=== PATIENT | female | born 1975 | race American Indian/Alaskan Native ===

== ENCOUNTER 2019-01-04 13:11 | Emergency (ER) | payer OTHER, MEDICARE ==
--- NOTE | 2019-01-04 13:37 | Emergency Department Report ---
Blank Doc - Documentation Documentation: 43 yo female presents with sickle cell pain pmh of BP took bp meds this morning cc of generalized pain labs protocols ordered
[2019-01-04] MEDS ORDERED: DILAUDID IV ONE ×2 (14:05→15:07)
[2019-01-04] MEDS ORDERED: ZOFRAN IV ONE (14:05)
[2019-01-04] MEDS ORDERED: BENADRYL IV ONE (14:07)
--- NOTE | 2019-01-04 14:10 | Emergency Department Report ---
HPI - General Chief Complaint: Sickle Cell Crisis Time Seen by Provider: 01/04/19 13:35 - HPI HPI: Room 3 The patient is a 43-year-old female presenting with a chief complaint of sickle cell crisis. The patient states the past 3 days she's had diffuse body pain consistent with her sickle cell. Patient denies any history of fever. She missed an episode of nausea vomiting this morning. 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 Pulmonary Embolism - Surgical History Past Surgical History?: Yes Hx Cholecystectomy: Yes Additional Surgical History: splenectomy, 3 c-sections, tubal ligation. Port to R chest - Family History Family history: no significant - Social History Smoking Status: Never Smoker Substance Use Type: None (denies illicit drug use) - Medications Home Medications: Home Medications Medication Instructions Recorded Confirmed Last Taken Type Lisinopril [Zestril TAB] 40 mg PO QDAY 08/13/13 07/22/16 09/19/14 21:30 History hydroCHLOROthiazide [HCTZ] 25 mg PO QDAY 08/13/13 07/22/16 09/19/14 21:30 History Folic Acid [Folvite] 1 mg PO QDAY #60 tablet 09/09/14 07/22/16 09/20/14 08:00 Rx Hydroxyurea [Droxia] 500 mg PO BID #60 capsule 09/09/14 07/22/16 09/20/14 08:00 Rx Rivaroxaban [Xarelto] 20 mg PO QDAY 02/04/16 07/22/16 Unknown History Ibuprofen [Motrin 800 MG tab] 800 mg PO Q8HR PRN #20 tablet 07/22/16 Unknown Rx glipiZIDE [glipiZIDE XL] 1 tab PO DAILY 07/22/16 07/22/16 Unknown History metFORMIN [Glucophage] 500 mg PO BID 07/22/16 07/22/16 Unknown History oxyCODONE /ACETAMINOPHEN [Percocet 1 - 2 tab PO Q6HR PRN #14 tablet 07/22/16 Unknown Rx 5/325] HYDROcodone/APAP 5-325 [[place] 1 - 2 each PO Q6HR PRN #14 tablet 01/04/19 Unknown Rx 5/325] Ibuprofen [Motrin 800 MG tab] 800 mg PO Q8HR PRN #20 tablet 01/04/19 Unknown Rx ED Review of Systems ROS: Stated complaint: SICKLE CELL Other details as noted in HPI Constitutional: denies: fever Eyes: denies: eye pain ENT: denies: throat pain Respiratory: no symptoms reported Cardiovascular: denies: chest pain Endocrine: no symptoms reported Gastrointestinal: denies: abdominal pain Genitourinary: denies: dysuria Musculoskeletal: myalgia Neurological: denies: headache Hematological/Lymphatic: other (pain crisis) Physical Exam - Physical Exam Vital Signs: Vital Signs 01/04/19 13:22 Temperature 98.2 F Pulse Rate 92 H Respiratory 18 Rate Blood Pressure 204/92 O2 Sat by Pulse 100 Oximetry Physical Exam: GENERAL: The patient is well-developed well-nourished female lying on stretcher not appearing to be in acute distress. [] HEENT: Normocephalic. Atraumatic. Extraocular motions are intact. Patient has moist mucous membranes. NECK: Supple. Trachea midline CHEST/LUNGS: Clear to auscultation. There is no respiratory distress noted. HEART/CARDIOVASCULAR: Regular. There is no tachycardia. There is no gallop rub or murmur. ABDOMEN: Abdomen is soft, nontender. Patient has normal bowel sounds. There is no abdominal distention. SKIN: There is no rash. There is no edema. There is no diaphoresis. NEURO: The patient is awake, alert, and oriented. The patient is cooperative. The patient has normal speech MUSCULOSKELETAL: There is no evidence of acute injury. ED Course Vital Signs 01/04/19 13:22 Temperature 98.2 F Pulse Rate 92 H Respiratory 18 Rate Blood Pressure 204/92 O2 Sat by Pulse 100 Oximetry ED Medical Decision Making - Lab Data Result diagrams: 01/04/19 14:19 01/04/19 14:19 Laboratory Tests 01/04/19 01/04/19 01/04/19 14:19 14:19 14:19 WBC 14.1 H RBC 5.55 H Hgb 9.4 L Hct 32.7 MCV 59 L MCH 17 L MCHC 29 L RDW 30.6 H Plt Count 528 H Percent Retic PT 13.6 INR 1.00 Sodium 142 Potassium 3.4 L Chloride 102.9 Carbon Dioxide 26 Anion Gap 17 BUN 5 L Creatinine 0.5 L Estimated GFR > 60 BUN/Creatinine Ratio 10 Glucose 250 H Calcium 8.9 01/04/19 14:19 WBC RBC Hgb Hct MCV MCH MCHC RDW Plt Count Percent Retic 2.55 PT INR Sodium Potassium Chloride Carbon Dioxide Anion Gap BUN Creatinine Estimated GFR BUN/Creatinine Ratio Glucose Calcium - Differential Diagnosis sickle cell pain crisis Critical care attestation.: If time is entered above; I have spent that time in minutes in the direct care of this critically ill patient, excluding procedure time. ED Disposition Clinical Impression: Sickle cell pain crisis Disposition: TO HOME OR SELFCARE Is pt being admited?: No Does the pt Need Aspirin: No Condition: Stable Instructions: Sickle Cell Crisis (ED) Additional Instructions: Return to the emergency department immediately should you develop worsening symptoms, fever, inability to tolerate food or liquid or any other concerns. Prescriptions: HYDROcodone/APAP 5-325 [[place] 5/325] 1 - 2 each PO Q6HR PRN #14 tablet PRN Reason: Pain Ibuprofen [Motrin 800 MG tab] 800 mg PO Q8HR PRN #20 tablet PRN Reason: Pain, Moderate (4-6) Referrals: JAMES REES MD [Primary Care Provider] - 3-[address] Grullon, sole cementer [Other] - 3-5 Days Time of Disposition: 15:23
[2019-01-04 14:41] LABS: Red Blood Count 5.55 M/mm3 (3.65-5.03)
[2019-01-04 14:42] LABS: Hematocrit 32.7 % (30.3-42.9); Hemoglobin 9.4 gm/dl (10.1-14.3); Mean Corpuscular HGB Conc 29 % (30-34); Mean Corpuscular Volume 59 fl (79-97); Platelet Count 528 K/mm3 (140-440); Red Cell Distribution Width 30.6 % (13.2-15.2)
[2019-01-04 14:44] LABS: BUN/Creatinine Ratio 10; Blood Urea Nitrogen 5 mg/dL (7-17); Calcium 8.9 mg/dL (8.4-10.2); Hemolysis Index 8
[2019-01-04] MEDS ORDERED: D5NS 0.2% 1,000 ML IV SCH (15:00)
[2019-01-04] MEDS ORDERED: FLUSH HEPARIN IV ONE ×2 (15:37→15:42)
[2019-01-04 15:43] LABS: Anisocytosis 2+; Basophils % (Manual) 0 % (0.0-1.8); Eosinophils % (Manual) 0 % (0.0-4.3); Poikilocytosis 3+; Total Cells Counted 100
[2019-01-04 15:44] LABS: Hypochromasia 2+; Ovalocytes Few; Schistocytes Rare; Target Cells 2+
[2019-01-04 15:45] LABS: Large Platelets Few; Platelet Estimate Consistent w Auto; Tear Drop Cells Few
[2019-01-04 15:46] VITALS: BP 145/70
== END 2019-01-04 15:46 | disposition home or self-care (01) ==
LOC: ED 13:11
DX: D57.00 Hb-SS disease with crisis, unspecified (principal); I10 Essential (primary) hypertension; E11.9 Type 2 diabetes mellitus without complications; G43.909 Migraine, unspecified, not intractable, without status migrainosus; Z90.49 Acquired absence of other specified parts of digestive tract
CPT/HCPCS: 36415; 80048; 85007; 85025; 85045; 85610; 96361; 96374; 96375; 96376; 99283; J1170; J1200; J1642; J2405

== ENCOUNTER 2019-03-04 10:11 | Emergency (ER) | payer OTHER, MEDICARE ==
[2019-03-04] MEDS ORDERED: NACL 0.9% 1000 ML 1,000 ML IV ONE (12:17)
[2019-03-04] MEDS ORDERED: DILAUDID IM ONE (12:17)
[2019-03-04] MEDS ORDERED: ZOFRAN IV ONE (12:17)
[2019-03-04 12:20] VITALS: BP 175/95
[2019-03-04 13:13] LABS: Hematocrit 31.7 % (30.3-42.9); Hemoglobin 9.6 gm/dl (10.1-14.3); Mean Corpuscular HGB Conc 30 % (30-34); Mean Corpuscular Volume 61 fl (79-97); Platelet Count 538 K/mm3 (140-440); Red Blood Count 5.22 M/mm3 (3.65-5.03); Red Cell Distribution Width 31.7 % (13.2-15.2)
[2019-03-04 13:17] LABS: INR 0.95 (0.87-1.13)
[2019-03-04 13:18] LABS: Partial Thromboplastin Time 26.9 Sec. (24.2-36.6)
[2019-03-04 13:30] LABS: Alanine Aminotransferase 12 units/L (7-56); Albumin 4.2 g/dL (3.9-5); BUN/Creatinine Ratio 23; Blood Urea Nitrogen 9 mg/dL (7-17); Calcium 8.9 mg/dL (8.4-10.2); Hemolysis Index 4
[2019-03-04] MEDS ORDERED: DILAUDID IV ONE (13:43)
--- NOTE | 2019-03-04 13:47 | Emergency Department Report ---
ED General Adult HPI - General Chief complaint: Sickle Cell Crisis Stated complaint: SICKLE CELL PAIN Time Seen by Provider: 03/04/19 12:13 Source: patient Mode of arrival: Ambulatory Limitations: No Limitations - History of Present Illness Initial comments: Patient presents to emergency department she complains sickle cell crisis. Patient states she is having right lower sclerae pain which is common with her sickle cell crisis. She states the pain starts in the right hip and goes to her right knee. Patient normally takes MS Contin for pain at home but has been out for the last couple days. -: Sudden Location: lower extremity Severity scale (0 -10): 6 Quality: stabbing, sharp Consistency: constant Improves with: none Worsens with: none Associated Symptoms: denies other symptoms Treatments Prior to Arrival: none - Related Data Home Medications Medication Instructions Recorded Confirmed Last Taken Lisinopril [Zestril TAB] 40 mg PO QDAY 08/13/13 07/22/16 09/19/14 21:30 hydroCHLOROthiazide [HCTZ] 25 mg PO QDAY 08/13/13 07/22/16 09/19/14 21:30 Rivaroxaban [Xarelto] 20 mg PO QDAY 02/04/16 07/22/16 Unknown glipiZIDE [glipiZIDE XL] 1 tab PO DAILY 07/22/16 07/22/16 Unknown metFORMIN [Glucophage] 500 mg PO BID 07/22/16 07/22/16 Unknown Previous Rx's Medication Instructions Recorded Last Taken Type Folic Acid [Folvite] 1 mg PO QDAY #60 tablet 09/09/14 09/20/14 08:00 Rx Hydroxyurea [Droxia] 500 mg PO BID #60 capsule 09/09/14 09/20/14 08:00 Rx Ibuprofen [Motrin 800 MG tab] 800 mg PO Q8HR PRN #20 tablet 07/22/16 Unknown Rx oxyCODONE /ACETAMINOPHEN [Percocet 1 - 2 tab PO Q6HR PRN #14 tablet 07/22/16 Unknown Rx 5/325] HYDROcodone/APAP 5-325 [[place] 1 - 2 each PO Q6HR PRN #14 tablet 01/04/19 Unknown Rx 5/325] Ibuprofen [Motrin 800 MG tab] 800 mg PO Q8HR PRN #20 tablet 01/04/19 Unknown Rx oxyCODONE /ACETAMINOPHEN [Percocet 1 tab PO Q6HR PRN #12 tablet 03/04/19 Unknown Rx 5/325] Allergies Allergy/AdvReac Type Severity Reaction Status Date / Time morphine Allergy Hives Verified 01/04/19 14:09 shellfish derived Allergy Hives Verified 01/04/19 13:36 ED Review of Systems ROS: Stated complaint: SICKLE CELL PAIN Other details as noted in HPI Constitutional: denies: chills, fever Eyes: denies: eye pain, eye discharge, vision change ENT: denies: ear pain, throat pain Respiratory: denies: cough, shortness of breath, wheezing Cardiovascular: denies: chest pain, palpitations Endocrine: no symptoms reported Gastrointestinal: denies: abdominal pain, nausea, diarrhea Genitourinary: denies: urgency, dysuria, discharge Musculoskeletal: arthralgia. denies: back pain, joint swelling Skin: denies: rash, lesions Neurological: denies: headache, weakness, paresthesias Psychiatric: denies: anxiety, depression Hematological/Lymphatic: denies: easy bleeding, easy bruising ED Past Medical Hx - Past Medical History Previous Medical History?: Yes Hx Hypertension: Yes Hx Diabetes: Yes (insulin resistent due to pcos) 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 Pulmonary Embolism - Surgical History Past Surgical History?: Yes Hx Cholecystectomy: Yes Additional Surgical History: splenectomy, 3 c-sections, tubal ligation. Port to R chest - Social History Smoking Status: Current Every Day Smoker Substance Use Type: Alcohol - Medications Home Medications: Home Medications Medication Instructions Recorded Confirmed Last Taken Type Lisinopril [Zestril TAB] 40 mg PO QDAY 08/13/13 07/22/16 09/19/14 21:30 History hydroCHLOROthiazide [HCTZ] 25 mg PO QDAY 08/13/13 07/22/16 09/19/14 21:30 History Folic Acid [Folvite] 1 mg PO QDAY #60 tablet 09/09/14 07/22/16 09/20/14 08:00 Rx Hydroxyurea [Droxia] 500 mg PO BID #60 capsule 09/09/14 07/22/16 09/20/14 08:00 Rx Rivaroxaban [Xarelto] 20 mg PO QDAY 02/04/16 07/22/16 Unknown History Ibuprofen [Motrin 800 MG tab] 800 mg PO Q8HR PRN #20 tablet 07/22/16 Unknown Rx glipiZIDE [glipiZIDE XL] 1 tab PO DAILY 07/22/16 07/22/16 Unknown History metFORMIN [Glucophage] 500 mg PO BID 07/22/16 07/22/16 Unknown History oxyCODONE /ACETAMINOPHEN [Percocet 1 - 2 tab PO Q6HR PRN #14 tablet 07/22/16 Unknown Rx 5/325] HYDROcodone/APAP 5-325 [[place] 1 - 2 each PO Q6HR PRN #14 tablet 01/04/19 Unknown Rx 5/325] Ibuprofen [Motrin 800 MG tab] 800 mg PO Q8HR PRN #20 tablet 01/04/19 Unknown Rx oxyCODONE /ACETAMINOPHEN [Percocet 1 tab PO Q6HR PRN #12 tablet 03/04/19 Unknown Rx 5/325] ED Physical Exam - General Limitations: No Limitations General appearance: alert, in no apparent distress - Head Head exam: Present: atraumatic, normocephalic - Eye Eye exam: Present: normal appearance, PERRL, EOMI - ENT ENT exam: Present: mucous membranes moist - Neck Neck exam: Present: normal inspection - Respiratory Respiratory exam: Present: normal lung sounds bilaterally. Absent: respiratory distress, wheezes, rales, rhonchi - Cardiovascular Cardiovascular Exam: Present: regular rate, normal rhythm. Absent: systolic murmur, diastolic murmur, rubs, gallop - GI/Abdominal GI/Abdominal exam: Present: soft, normal bowel sounds. Absent: distended, tenderness - Extremities Exam Extremities exam: Present: normal inspection, other (the patient has significant pain to light touch of the right lower extremity throughout) - Back Exam Back exam: Present: normal inspection - Neurological Exam Neurological exam: Present: alert, oriented X3, CN II-XII intact. Absent: motor sensory deficit - Psychiatric Psychiatric exam: Present: normal affect, normal mood - Skin Skin exam: Present: warm, dry, intact, normal color. Absent: rash ED Course Vital Signs 03/04/19 03/04/19 10:31 12:18 Temperature 98.7 F 97.9 F Pulse Rate 79 92 H Respiratory 16 17 Rate Blood Pressure 181/97 175/95 [Left] O2 Sat by Pulse 100 99 Oximetry ED Medical Decision Making - Lab Data Result diagrams: 03/04/19 12:42 03/04/19 12:41 Lab Results 03/04/19 03/04/19 03/04/19 Range/Units 12:41 12:41 12:42 WBC 9.0 (4.5-11.0) K/mm3 RBC 5.22 H (3.65-5.03) M/mm3 Hgb 9.6 L (10.1-14.3) gm/dl Hct 31.7 (30.3-42.9) % MCV 61 L (79-97) fl MCH 18 L (28-32) pg MCHC 30 (30-34) % RDW 31.7 H (13.2-15.2) % Plt Count 538 H (140-440) K/mm3 Lymph % (Auto) [place] % (Auto) Col[place] Eos % (Auto) [place] Baso % (Auto) [place] Lymph # [place] # [place] Eos # [place] Baso # [place] Seg Neutrophils % [place] Seg Neutrophils # [place] Percent Retic 2.44 (0.78-2.58) % PT 13.3 (12.2-14.9) Sec. INR 0.95 (0.87-1.13) APTT 26.9 (24.2-36.6) Sec. Sodium 140 (137-145) mmol/L Potassium 3.7 (3.6-5.0) mmol/L Chloride 100.2 (98-107) mmol/L Carbon Dioxide 28 (22-30) mmol/L Anion Gap 16 mmol/L BUN 9 (7-17) mg/dL Creatinine 0.4 L (0.7-1.2) mg/dL Estimated GFR > 60 ml/min BUN/Creatinine Ratio 23 % Glucose 141 H (65-100) mg/dL Calcium 8.9 (8.4-10.2) mg/dL Total Bilirubin 1.10 (0.1-1.2) mg/dL AST 18 (5-40) units/L ALT 12 (7-56) units/L Alkaline Phosphatase 187 H (35-129) units/L Lactate Dehydrogenase 215 H (91-180) units/L Total Protein 8.7 H (6.3-8.2) g/dL Albumin 4.2 (3.9-5) g/dL Albumin/Globulin Ratio 0.9 % Critical care attestation.: If time is entered above; I have spent that time in minutes in the direct care of this critically ill patient, excluding procedure time. ED Disposition Clinical Impression: Sickle cell crisis Disposition: DC-01 TO HOME OR SELFCARE Is pt being admited?: No Does the pt Need Aspirin: No Condition: Stable Instructions: Sickle Cell Crisis (ED) Additional Instructions: return if worse Prescriptions: oxyCODONE /ACETAMINOPHEN [Percocet 5/325] 1 tab PO Q6HR PRN #12 tablet PRN Reason: Pain Referrals: AMBAR ENG MD [Primary Care Provider] - 3-5 Days [facility] [Provider Group] - 3-5 Days [facility] [Provider Group] - 3-5 Days [facility] [Outside] - 3-5 Days Time of Disposition: 14:10
[2019-03-04 14:20] LABS: Basophils % (Manual) 0 % (0.0-1.8); Total Cells Counted 100
[2019-03-04 14:21] LABS: Anisocytosis 2+; Hypochromasia 2+; Ovalocytes Few; Poikilocytosis 3+; Target Cells 2+; Tear Drop Cells Rare
[2019-03-04 14:22] LABS: Large Platelets Few; Platelet Estimate Consistent w Auto
== END 2019-03-04 14:23 | disposition home or self-care (01) ==
LOC: ED 10:11
DX: D57.00 Hb-SS disease with crisis, unspecified (principal); I10 Essential (primary) hypertension; E11.9 Type 2 diabetes mellitus without complications; G43.909 Migraine, unspecified, not intractable, without status migrainosus; F17.200 Nicotine dependence, unspecified, uncomplicated
CPT/HCPCS: 36415; 80053; 83615; 85007; 85025; 85045; 85610; 85730; 96372; 96374; 96375; 99283; J1170; J2405; J7030

== ENCOUNTER 2019-04-01 10:48 | Emergency (ER) | payer OTHER, MEDICARE ==
--- NOTE | 2019-04-01 11:05 | Emergency Department Report ---
Blank Doc - Documentation Documentation: This is a 43-year-old female that presents with bilateral legs and feet pain. Denies any trauma. HX of DM and sickle cell. This initial assessment/diagnostic orders/clinical plan/treatment(s) is/are subject to change based on patient's health status, clinical progression and re- assessment by fellow clinical providers in the ED. Further treatment and workup at subsequent clinical providers discretion. Patient/guardians urged not to elope from the ED as their condition may be serious if not clinically assessed and managed. Initial orders include: 1- Patient sent to [facility] for further evaluation and treatment 2- labs
[2019-04-01] MEDS ORDERED: DILAUDID IV ONE ×2 (12:28→14:41)
[2019-04-01] MEDS ORDERED: NACL 0.9% 1000 ML 1,000 ML IV ONE ×2 (12:28)
[2019-04-01] MEDS ORDERED: TORADOL IV ONE (12:28)
[2019-04-01] MEDS ORDERED: BENADRYL IV ONE (12:28)
[2019-04-01 13:13] LABS: Hematocrit 34.2 % (30.3-42.9); Hemoglobin 10.4 gm/dl (10.1-14.3); Mean Corpuscular HGB Conc 31 % (30-34); Red Blood Count 5.49 M/mm3 (3.65-5.03)
[2019-04-01 13:16] LABS: Mean Corpuscular Volume 62 fl (79-97); Red Cell Distribution Width 30.8 % (13.2-15.2)
[2019-04-01 13:35] LABS: BUN/Creatinine Ratio 22; Blood Urea Nitrogen 13 mg/dL (7-17); Calcium 9.5 mg/dL (8.4-10.2); Hemolysis Index 10
--- NOTE | 2019-04-01 14:45 | Emergency Department Report ---
ED General Adult HPI - General Chief complaint: Sickle Cell Crisis Stated complaint: SICKLE CELL PAIN Time Seen by Provider: 04/01/19 11:04 Source: patient Mode of arrival: Ambulatory Limitations: No Limitations - History of Present Illness Initial comments: Patient is a 43-year-old female who has a past history is sickle cell disease most specifically she has beta thalassemia who is presenting with sickle cell crisis. Patient states that she has pain in her bilateral legs and lower back. Patient denies fevers chills, cold or congestion at this time. Patient states that her next doctor's appointment is 3 days from now. Severity scale (0 -10): 8 Quality: aching Consistency: constant Improves with: none Worsens with: none Associated Symptoms: denies: cough, diaphoresis, fever/chills, headaches, loss of appetite, malaise, nausea/vomiting, rash, seizure, shortness of breath - Related Data Home Medications Medication Instructions Recorded Confirmed Last Taken Lisinopril [Zestril TAB] 40 mg PO QDAY 08/13/13 07/22/16 09/19/14 21:30 hydroCHLOROthiazide [HCTZ] 25 mg PO QDAY 08/13/13 07/22/16 09/19/14 21:30 Rivaroxaban [Xarelto] 20 mg PO QDAY 02/04/16 07/22/16 Unknown glipiZIDE [glipiZIDE XL] 1 tab PO DAILY 07/22/16 07/22/16 Unknown metFORMIN [Glucophage] 500 mg PO BID 07/22/16 07/22/16 Unknown Previous Rx's Medication Instructions Recorded Last Taken Type Folic Acid [Folvite] 1 mg PO QDAY #60 tablet 09/09/14 09/20/14 08:00 Rx Hydroxyurea [Droxia] 500 mg PO BID #60 capsule 09/09/14 09/20/14 08:00 Rx Ibuprofen [Motrin 800 MG tab] 800 mg PO Q8HR PRN #20 tablet 07/22/16 Unknown Rx HYDROcodone/APAP 5-325 [[place] 1 - 2 each PO Q6HR PRN #14 tablet 01/04/19 Unknown Rx 5/325] Ibuprofen [Motrin 800 MG tab] 800 mg PO Q8HR PRN #20 tablet 01/04/19 Unknown Rx oxyCODONE /ACETAMINOPHEN [Percocet 1 tab PO Q6HR PRN #12 tablet 03/04/19 Unknown Rx 5/325] oxyCODONE /ACETAMINOPHEN [Percocet 1 - 2 tab PO Q6HR PRN #14 tablet 04/01/19 Unknown Rx 5/325 mg] Allergies Allergy/AdvReac Type Severity Reaction Status Date / Time morphine Allergy Hives Verified 01/04/19 14:09 shellfish derived Allergy Hives Verified 01/04/19 13:36 ED Review of Systems ROS: Stated complaint: SICKLE CELL PAIN Other details as noted in HPI Comment: All other systems reviewed and negative ED Past Medical Hx - Past Medical History Previous Medical History?: Yes Hx Hypertension: Yes Hx Diabetes: Yes (insulin resistent due to pcos) 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 Pulmonary Embolism - Surgical History Past Surgical History?: Yes Hx Cholecystectomy: Yes Additional Surgical History: splenectomy, 3 c-sections, tubal ligation. Port to R chest - Social History Smoking Status: Never Smoker Substance Use Type: None - Medications Home Medications: Home Medications Medication Instructions Recorded Confirmed Last Taken Type Lisinopril [Zestril TAB] 40 mg PO QDAY 08/13/13 07/22/16 09/19/14 21:30 History hydroCHLOROthiazide [HCTZ] 25 mg PO QDAY 08/13/13 07/22/16 09/19/14 21:30 History Folic Acid [Folvite] 1 mg PO QDAY #60 tablet 09/09/14 07/22/16 09/20/14 08:00 Rx Hydroxyurea [Droxia] 500 mg PO BID #60 capsule 09/09/14 07/22/16 09/20/14 08:00 Rx Rivaroxaban [Xarelto] 20 mg PO QDAY 02/04/16 07/22/16 Unknown History Ibuprofen [Motrin 800 MG tab] 800 mg PO Q8HR PRN #20 tablet 07/22/16 Unknown Rx glipiZIDE [glipiZIDE XL] 1 tab PO DAILY 07/22/16 07/22/16 Unknown History metFORMIN [Glucophage] 500 mg PO BID 07/22/16 07/22/16 Unknown History HYDROcodone/APAP 5-325 [[place] 1 - 2 each PO Q6HR PRN #14 tablet 01/04/19 Unknown Rx 5/325] Ibuprofen [Motrin 800 MG tab] 800 mg PO Q8HR PRN #20 tablet 01/04/19 Unknown Rx oxyCODONE /ACETAMINOPHEN [Percocet 1 tab PO Q6HR PRN #12 tablet 03/04/19 Unk nown Rx 5/325] oxyCODONE /ACETAMINOPHEN [Percocet 1 - 2 tab PO Q6HR PRN #14 tablet 04/01/19 Unknown Rx 5/325 mg] ED Physical Exam - General Limitations: No Limitations General appearance: alert, in no apparent distress - Head Head exam: Present: atraumatic, normocephalic - Eye Eye exam: Present: normal appearance - ENT ENT exam: Present: mucous membranes moist - Neck Neck exam: Present: normal inspection - Respiratory Respiratory exam: Present: normal lung sounds bilaterally. Absent: respiratory distress, wheezes, rales, rhonchi - Cardiovascular Cardiovascular Exam: Present: regular rate, normal rhythm, normal heart sounds. Absent: systolic murmur, diastolic murmur, rubs, gallop - GI/Abdominal GI/Abdominal exam: Present: soft, normal bowel sounds. Absent: distended, tenderness, guarding, rebound - Extremities Exam Extremities exam: Present: normal inspection - Back Exam Back exam: Present: normal inspection - Neurological Exam Neurological exam: Present: alert, oriented X3 - Psychiatric Psychiatric exam: Present: normal affect, normal mood - Skin Skin exam: Present: warm, dry, intact, normal color. Absent: rash ED Course Vital Signs 04/01/19 04/01/19 04/01/19 11:04 13:24 13:26 Temperature 98.2 F Pulse Rate 104 H Respiratory 18 18 18 Rate Blood Pressure 135/87 O2 Sat by Pulse 100 Oximetry 04/01/19 04/01/19 13:54 13:56 Temperature Pulse Rate Respiratory 18 18 Rate Blood Pressure O2 Sat by Pulse Oximetry ED Medical Decision Making - Lab Data Result diagrams: 04/01/19 12:40 04/01/19 12:40 Lab Results 04/01/19 04/01/19 Range/Units 12:40 12:40 WBC 8.7 (4.5-11.0) K/mm3 RBC 5.49 H (3.65-5.03) M/mm3 Hgb 10.4 (10.1-14.3) gm/dl Hct 34.2 (30.3-42.9) % MCV 62 L (79-97) fl MCH 19 L (28-32) pg MCHC 31 (30-34) % RDW 30.8 H (13.2-15.2) % Percent Retic 3.01 H (0.78-2.58) % Sodium 135 L (137-145) mmol/L Potassium 4.5 (3.6-5.0) mmol/L Chloride 96.9 L (98-107) mmol/L Carbon Dioxide 22 (22-30) mmol/L Anion Gap 21 mmol/L BUN 13 (7-17) mg/dL Creatinine 0.6 L (0.7-1.2) mg/dL Estimated GFR > 60 ml/min BUN/Creatinine Ratio 22 % Glucose 235 H (65-100) mg/dL Calcium 9.5 (8.4-10.2) mg/dL - Medical Decision Making Patient was given IV hydration N Ramírez symptomatic relief her pain is improving. Patient will be given a three-day dose of Percocet until she is able to see her doctor. Patient discharged in stable condition. Critical care attestation.: If time is entered above; I have spent that time in minutes in the direct care of this critically ill patient, excluding procedure time. ED Disposition Clinical Impression: Sickle cell anemia with pain Disposition: DC-01 TO HOME OR SELFCARE Is pt being admited?: No Does the pt Need Aspirin: No Condition: Stable Prescriptions: oxyCODONE /ACETAMINOPHEN [Percocet 5/325 mg] 1 - 2 tab PO Q6HR PRN #14 tablet PRN Reason: Pain Time of Disposition: 14:45
[2019-04-01 15:06] LABS: Anisocytosis 2+; Giant Platelets Rare; Hypochromasia 2+; Platelet Estimate Consistent w Auto; Target Cells 2+; Total Cells Counted 100
[2019-04-01 15:21] VITALS: BP 138/79
[2019-04-01 16:35] LABS: Platelet Count 655 K/mm3 (140-440)
== END 2019-04-01 15:20 | disposition home or self-care (01) ==
LOC: ED 10:48
DX: D57.00 Hb-SS disease with crisis, unspecified (principal); I10 Essential (primary) hypertension; G43.909 Migraine, unspecified, not intractable, without status migrainosus; E11.9 Type 2 diabetes mellitus without complications; Z79.4 Long term (current) use of insulin; Z90.49 Acquired absence of other specified parts of digestive tract; Z98.51 Tubal ligation status; Z88.5 Allergy status to narcotic agent; Z91.013 Allergy to seafood; Z86.711 Personal history of pulmonary embolism; Z90.81 Acquired absence of spleen
CPT/HCPCS: 36415; 80048; 85007; 85025; 85045; 96374; 96375; 96376; 99283; J1170; J1200; J1885; J7030

== ENCOUNTER 2019-05-06 11:15 | Emergency (ER) | payer OTHER, MEDICARE ==
[2019-05-06 12:06] LABS: Hematocrit 30.4 % (30.3-42.9); Hemoglobin 9.5 gm/dl (10.1-14.3); Mean Corpuscular HGB Conc 31 % (30-34); Mean Corpuscular Volume 73 fl (79-97); Red Blood Count 4.15 M/mm3 (3.65-5.03)
[2019-05-06 12:15] LABS: Red Cell Distribution Width 31.6 % (13.2-15.2)
[2019-05-06 12:23] LABS: BUN/Creatinine Ratio 16; Blood Urea Nitrogen 8 mg/dL (7-17); Calcium 8.8 mg/dL (8.4-10.2); Hemolysis Index 14
[2019-05-06 13:01] LABS: Basophils % (Manual) 0 % (0.0-1.8); Total Cells Counted 100
[2019-05-06 13:19] LABS: Anisocytosis 2+
[2019-05-06 13:20] LABS: Giant Platelets Rare; Hypochromasia 1+; Sickle Cells Rare; Target Cells 2+
[2019-05-06 13:24] LABS: Platelet Estimate Consistent w Auto
[2019-05-06 13:30] LABS: Platelet Count 320 K/mm3 (140-440)
[2019-05-06] MEDS ORDERED: NACL 0.9% 1000 ML 1,000 ML IV ONE ×3 (13:58→14:16)
[2019-05-06] MEDS ORDERED: ZOFRAN IV ONE (14:15)
[2019-05-06] MEDS ORDERED: DILAUDID IV ONE ×3 (14:17→16:07)
--- NOTE | 2019-05-06 14:21 | Emergency Department Report ---
ED General Adult HPI - General Chief complaint: Sickle Cell Crisis Stated complaint: SICKLE CELL CRISIS/CHEST PAIN Time Seen by Provider: 05/06/19 14:08 Source: patient Mode of arrival: Ambulatory Limitations: No Limitations - History of Present Illness Initial comments: The patient presents to the emergency department with the chief complaint sickle cell crisis. Patient describes having sharp pain throughout her whole body was consistent with her sickle cell crisis. Patient nausea for chest pain, short of breath, or abdominal pain. -: Gradual Severity scale (0 -10): 8 Quality: stabbing Consistency: constant Improves with: none Worsens with: none Associated Symptoms: denies other symptoms Treatments Prior to Arrival: none - Related Data Home Medications Medication Instructions Recorded Confirmed Last Taken Lisinopril [Zestril TAB] 40 mg PO QDAY 08/13/13 07/22/16 09/19/14 21:30 hydroCHLOROthiazide [HCTZ] 25 mg PO QDAY 08/13/13 07/22/16 09/19/14 21:30 Rivaroxaban [Xarelto] 20 mg PO QDAY 02/04/16 07/22/16 Unknown glipiZIDE [glipiZIDE XL] 1 tab PO DAILY 07/22/16 07/22/16 Unknown metFORMIN [Glucophage] 500 mg PO BID 07/22/16 07/22/16 Unknown Previous Rx's Medication Instructions Recorded Last Taken Type Folic Acid [Folvite] 1 mg PO QDAY #60 tablet 09/09/14 09/20/14 08:00 Rx Hydroxyurea [Droxia] 500 mg PO BID #60 capsule 09/09/14 09/20/14 08:00 Rx Ibuprofen [Motrin 800 MG tab] 800 mg PO Q8HR PRN #20 tablet 07/22/16 Unknown Rx HYDROcodone/APAP 5-325 [[place] 1 - 2 each PO Q6HR PRN #14 tablet 01/04/19 Unknown Rx 5/325] Ibuprofen [Motrin 800 MG tab] 800 mg PO Q8HR PRN #20 tablet 01/04/19 Unknown Rx oxyCODONE /ACETAMINOPHEN [Percocet 1 tab PO Q6HR PRN #12 tablet 03/04/19 Unknown Rx 5/325] oxyCODONE /ACETAMINOPHEN [Percocet 1 - 2 tab PO Q6HR PRN #14 tablet 04/01/19 Unknown Rx 5/325 mg] HYDROcodone/APAP 5-325 [[place] 1 each PO Q6HR PRN #8 tablet 05/06/19 Unknown Rx 5/325] Allergies Allergy/AdvReac Type Severity Reaction Status Date / Time morphine Allergy Hives Verified 01/04/19 14:09 shellfish derived Allergy Hives Verified 01/04/19 13:36 ED Review of Systems ROS: Stated complaint: SICKLE CELL CRISIS/CHEST PAIN Other details as noted in HPI Comment: All other systems reviewed and negative Constitutional: denies: chills, fever Eyes: denies: eye pain, eye discharge, vision change ENT: denies: ear pain, throat pain Respiratory: denies: cough, shortness of breath, wheezing Cardiovascular: denies: chest pain, palpitations Endocrine: no symptoms reported Gastrointestinal: denies: abdominal pain, nausea, diarrhea Genitourinary: denies: urgency, dysuria, discharge Musculoskeletal: denies: back pain, joint swelling, arthralgia Skin: denies: rash, lesions Neurological: denies: headache, weakness, paresthesias Psychiatric: denies: anxiety, depression Hematological/Lymphatic: denies: easy bleeding, easy bruising ED Past Medical Hx - Past Medical History Previous Medical History?: Yes Hx Hypertension: Yes Hx Diabetes: Yes (insulin resistent due to pcos) 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 Pulmonary Embolism - Surgical History Past Surgical History?: Yes Hx Cholecystectomy: Yes Additional Surgical History: splenectomy, 3 c-sections, tubal ligation. Port to R chest - Social History Smoking Status: Never Smoker Substance Use Type: None - Medications Home Medications: Home Medications Medication Instructions Recorded Confirmed Last Taken Type Lisinopril [Zestril TAB] 40 mg PO QDAY 08/13/13 07/22/16 09/19/14 21:30 History hydroCHLOROthiazide [HCTZ] 25 mg PO QDAY 08/13/13 07/22/16 09/19/14 21:30 History Folic Acid [Folvite] 1 mg PO QDAY #60 tablet 09/09/14 07/22/16 09/20/14 08:00 Rx Hydroxyurea [Droxia] 500 mg PO BID #60 capsule 09/09/14 07/22/16 09/20/14 08:00 Rx Rivaroxaban [Xarelto] 20 mg PO QDAY 02/04/16 07/22/16 Unknown History Ibuprofen [Motrin 800 MG tab] 800 mg PO Q8HR PRN #20 tablet 07/22/16 Unknown Rx glipiZIDE [glipiZIDE XL] 1 tab PO DAILY 07/22/16 07/22/16 Unknown History metFORMIN [Glucophage] 500 mg PO BID 07/22/16 07/22/16 Unknown History HYDROcodone/APAP 5-325 [[place] 1 - 2 each PO Q6HR PRN #14 tablet 01/04/19 Unknown Rx 5/325] Ibuprofen [Motrin 800 MG tab] 800 mg PO Q8HR PRN #20 tablet 01/04/19 Unknown Rx oxyCODONE /ACETAMINOPHEN [Percocet 1 tab PO Q6HR PRN #12 tablet 03/04/19 Unknown Rx 5/325] oxyCODONE /ACETAMINOPHEN [Percocet 1 - 2 tab PO Q6HR PRN #14 tablet 04/01/19 Unknown Rx 5/325 mg] HYDROcodone/APAP 5-325 [[place] 1 each PO Q6HR PRN #8 tablet 05/06/19 Unknown Rx 5/325] ED Physical Exam - General Limitations: No Limitations General appearance: alert, in no apparent distress - Head Head exam: Present: atraumatic, normocephalic - Eye Eye exam: Present: normal appearance - ENT ENT exam: Present: mucous membranes dry - Neck Neck exam: Present: normal inspection - Respiratory Respiratory exam: Present: normal lung sounds bilaterally. Absent: respiratory distress - Cardiovascular Cardiovascular Exam: Present: normal rhythm, tachycardia. Absent: systolic murmur, diastolic murmur, rubs, gallop - GI/Abdominal GI/Abdominal exam: Present: soft, normal bowel sounds. Absent: distended, tenderness - Extremities Exam Extremities exam: Present: normal inspection - Back Exam Back exam: Present: normal inspection - Neurological Exam Neurological exam: Present: alert, oriented X3, CN II-XII intact. Absent: motor sensory deficit - Psychiatric Psychiatric exam: Present: normal affect, normal mood - Skin Skin exam: Present: warm, dry, intact, normal color. Absent: rash ED Course Vital Signs 05/06/19 05/06/19 05/06/19 11:22 14:31 14:44 Temperature 98.0 F Pulse Rate 101 H Respiratory 20 17 16 Rate Blood Pressure 173/100 O2 Sat by Pulse 100 Oximetry 05/06/19 15:14 Temperature Pulse Rate Respiratory 16 Rate Blood Pressure O2 Sat by Pulse Oximetry ED Medical Decision Making - Lab Data Result diagrams: 05/06/19 11:38 05/06/19 11:38 Lab Results 05/06/19 05/06/19 05/06/19 Range/Units 11:38 11:38 11:38 WBC 8.5 (4.5-11.0) K/mm3 RBC 4.15 (3.65-5.03) M/mm3 Hgb 9.5 L (10.1-14.3) gm/dl Hct 30.4 (30.3-42.9) % MCV 73 L (79-97) fl MCH 23 L (28-32) pg MCHC 31 (30-34) % RDW 31.6 H (13.2-15.2) % Plt Count 320 (140-440) K/mm3 Add Manual Diff Complete Total Counted 100 Seg Neuts % (Manual) 67.0 (40.0-70.0) % Band Neutrophils % 0 % Lymphocytes % (Manual) 29.0 (13.4-35.0) % Reactive Lymphs % (Man) 0 % Monocytes % (Manual) 3.0 (0.0-7.3) % Eosinophils % (Manual) 1.0 (0.0-4.3) % Basophils % (Manual) 0 (0.0-1.8) % Metamyelocytes % 0 % Myelocytes % 0 % Promyelocytes % 0 % Blast Cells % 0 % Nucleated RBC % 22.0 H (0.0-0.9) % Seg Neutrophils # Man 5.7 (1.8-7.7) K/mm3 Band Neutrophils # 0.0 K/mm3 Lymphocytes # (Manual) 2.5 (1.2-5.4) K/mm3 Abs React Lymphs (Man) 0.0 K/mm3 Monocytes # (Manual) 0.3 (0.0-0.8) K/mm3 Eosinophils # (Manual) 0.1 (0.0-0.4) K/mm3 Basophils # (Manual) 0.0 (0.0-0.1) K/mm3 Metamyelocytes # 0.0 K/mm3 Myelocytes # 0.0 K/mm3 Promyelocytes # 0.0 K/mm3 Blast Cells # 0.0 K/mm3 WBC Morphology Not Reportable Hypersegmented Neuts Not Reportable Hyposegmented Neuts Not Reportable Hypogranular Neuts Not Reportable Smudge Cells Not Reportable Toxic Granulation Not Reportable Toxic Vacuolation Not Reportable Dohle Bodies Not Reportable Pelger-Huet Anomaly Not Reportable Greyson Rods Not Reportable Platelet Estimate Consistent w auto Clumped Platelets Not Reportable Plt Clumps, EDTA Not Reportable Large Platelets Not Reportable Giant Platelets Rare Platelet Satelliting Not Reportable Plt Morphology Comment Not Reportable RBC Morphology Not Reportable Dimorphic RBCs Not Reportable Polychromasia 1+ Hypochromasia 1+ Poikilocytosis Not Reportable Anisocytosis 2+ Microcytosis Not Reportable Macrocytosis Not Reportable Spherocytes Not Reportable Pappenheimer Bodies Not Reportable Sickle Cells Rare Target Cells 2+ Tear Drop Cells Not Reportable Ovalocytes Not Reportable Helmet Cells Not Reportable [place] Bodies Not Reportable [place] Rings Not Reportable Brenda Cells Not Reportable Bite Cells Not Reportable Crenated Cell Not Reportable Elliptocytes Not Reportable Acanthocytes (Spur) Not Reportable Rouleaux Not Reportable Hemoglobin C Crystals Not Reportable Schistocytes Not Reportable Malaria parasites Not Reportable Percent Retic 7.55 H (0.78-2.58) % Shorty Bodies Not Reportable Hem Pathologist Commnt No Sodium 141 (137-145) mmol/L Potassium 3.8 (3.6-5.0) mmol/L Chloride 98.2 (98-107) mmol/L Carbon Dioxide 27 (22-30) mmol/L Anion Gap 20 mmol/L BUN 8 (7-17) mg/dL Creatinine 0.5 L (0.7-1.2) mg/dL Estimated GFR > 60 ml/min BUN/Creatinine Ratio 16 % Glucose 179 H (65-100) mg/dL Calcium 8.8 (8.4-10.2) mg/dL Lactate Dehydrogenase (91-180) units/L Troponin T < 0.010 (0.00-0.029) ng/mL Urine Color (Yellow) Urine Turbidity (Clear) Urine pH (5.0-7.0) Ur Specific [place] (1.003-1.030) Urine Protein (Negative) mg/dL Urine Glucose (UA) (Negative) mg/dL Urine Ketones (Negative) mg/dL Urine Blood (Negative) Urine Nitrite (Negative) Ur Reducing Substances Urine Bilirubin (Negative) Urine Ictotest Urine Urobilinogen (<2.0) mg/dL Ur Leukocyte Esterase (Negative) Urine WBC (Auto) (0.0-6.0) /HPF Urine RBC (Auto) (0.0-6.0) /HPF U Epithel Cells (Auto) (0-13.0) /HPF Urine HCG, Qual (Negative) 05/06/19 05/06/19 Range/Units 11:38 Unknown WBC (4.5-11.0) K/mm3 RBC (3.65-5.03) M/mm3 Hgb (10.1-14.3) gm/dl Hct (30.3-42.9) % MCV (79-97) fl MCH (28-32) pg MCHC (30-34) % RDW (13.2-15.2) % Plt Count (140-440) K/mm3 Add Manual Diff Total Counted Seg Neuts % (Manual) (40.0-70.0) % Band Neutrophils % % Lymphocytes % (Manual) (13.4-35.0) % Reactive Lymphs % (Man) % Monocytes % (Manual) (0.0-7.3) % Eosinophils % (Manual) (0.0-4.3) % Basophils % (Manual) (0.0-1.8) % Metamyelocytes % % Myelocytes % % Promyelocytes % % Blast Cells % % Nucleated RBC % (0.0-0.9) % Seg Neutrophils # Man (1.8-7.7) K/mm3 Band Neutrophils # K/mm3 Lymphocytes # (Manual) (1.2-5.4) K/mm3 Abs React Lymphs (Man) K/mm3 Monocytes # (Manual) (0.0-0.8) K/mm3 Eosinophils # (Manual) (0.0-0.4) K/mm3 Basophils # (Manual) (0.0-0.1) K/mm3 Metamyelocytes # K/mm3 Myelocytes # K/mm3 Promyelocytes # K/mm3 Blast Cells # K/mm3 WBC Morphology Hypersegmented Neuts Hyposegmented Neuts Hypogranular Neuts Smudge Cells Toxic Granulation Toxic Vacuolation Dohle Bodies Pelger-Huet Anomaly Greyson Rods Platelet Estimate Clumped Platelets Plt Clumps, EDTA Large Platelets Giant Platelets Platelet Satelliting Plt Morphology Comment RBC Morphology Dimorphic RBCs Polychromasia Hypochromasia Poikilocytosis Anisocytosis Microcytosis Macrocytosis Spherocytes Pappenheimer Bodies Sickle Cells Target Cells Tear Drop Cells Ovalocytes Helmet Cells [place] Bodies [place] Rings [place] Cells Bite Cells Crenated Cell Elliptocytes Acanthocytes (Spur) Rouleaux Hemoglobin C Crystals Schistocytes Malaria parasites Percent Retic (0.78-2.58) % Shorty Bodies Hem Pathologist Commnt Sodium (137-145) mmol/L Potassium (3.6-5.0) mmol/L Chloride (98-107) mmol/L Carbon Dioxide (22-30) mmol/L Anion Gap mmol/L BUN (7-17) mg/dL Creatinine (0.7-1.2) mg/dL Estimated GFR ml/min BUN/Creatinine Ratio % Glucose (65-100) mg/dL Calcium (8.4-10.2) mg/dL Lactate Dehydrogenase 361 H (91-180) units/L Troponin T (0.00-0.029) ng/mL Urine Color Yellow (Yellow) Urine Turbidity Clear (Clear) Urine pH 8.0 H (5.0-7.0) Ur Specific [place] 1.012 (1.003-1.030) Urine Protein >500 (Negative) mg/dL Urine Glucose (UA) Neg (Negative) mg/dL Urine Ketones Neg (Negative) mg/dL Urine Blood Sm (Negative) Urine Nitrite Neg (Negative) Ur Reducing Substances Not Reportable Urine Bilirubin Neg (Negative) Urine Ictotest Not Reportable Urine Urobilinogen 4.0 (<2.0) mg/dL Ur Leukocyte Esterase Neg (Negative) Urine WBC (Auto) < 1.0 (0.0-6.0) /HPF Urine RBC (Auto) 1.0 (0.0-6.0) /HPF U Epithel Cells (Auto) 1.0 (0-13.0) /HPF Urine HCG, Qual Negative (Negative) - Medical Decision Making Patient states her symptoms have improved after medications Discuss results with patient Patient states she is on scheduled MS Contin but is out of her hydrocodone for breakthrough pain thus her reason for coming to the ED today. Critical care attestation.: If time is entered above; I have spent that time in minutes in the direct care of this critically ill patient, excluding procedure time. ED Disposition Clinical Impression: Sickle cell anemia with pain, Sickle cell pain crisis Disposition: TO HOME OR SELFCARE Is pt being admited?: No Does the pt Need Aspirin: No Condition: Stable Instructions: Sickle Cell Crisis (ED) Additional Instructions: Return if worse Prescriptions: HYDROcodone/APAP 5-325 [[place] 5/325] 1 each PO Q6HR PRN #8 tablet PRN Reason: Pain Time of Disposition: 15:36
[2019-05-06 14:40] LABS: WBC,Urine < 1.0 /HPF (0.0-6.0)
[2019-05-06 14:41] LABS: Bilirubin,Urine NEG (Negative); Blood,Urine SM (Negative); Color,Urine Yellow (Yellow)
[2019-05-06 14:42] LABS: Protein,Urine >500 mg/dL (Negative)
[2019-05-06 14:43] LABS: HCG Qualitative,Urine Negative (Negative)
[2019-05-06] MEDS ORDERED: FLUSH HEPARIN IV ONE (16:08)
[2019-05-06 16:21] VITALS: BP 154/103
== END 2019-05-06 16:28 | disposition home or self-care (01) ==
LOC: ED 11:15
DX: D57.00 Hb-SS disease with crisis, unspecified (principal); I10 Essential (primary) hypertension; E11.9 Type 2 diabetes mellitus without complications; G43.909 Migraine, unspecified, not intractable, without status migrainosus; Z90.49 Acquired absence of other specified parts of digestive tract; Z98.51 Tubal ligation status; Z88.6 Allergy status to analgesic agent; Z91.013 Allergy to seafood; Z79.899 Other long term (current) drug therapy
CPT/HCPCS: 36415; 80048; 81001; 81025; 83615; 84484; 85007; 85025; 85045; 93005; 93010; 96374; 96375; 96376; 99283; J1170; J1642; J2405; J7030; 96361